=== PATIENT | male | born 1995 | race Two or more races ===

== ENCOUNTER 2025-01-30 17:49 | Emergency (ER) | payer SELFPAY ==
[~2025-01-30] VITALS: Ht 182.9 cm; Wt 107.0 kg
--- NOTE | 2025-01-30 18:12 | ED.PDOC ---
History of Present Illness HPI Comments 29 yr old male BIB EMS complains of anxiety, insomnia, palpitations, malaise and nausea for the last 24 hours after using cocaine yesterday. patient denies trauma, denies SI or HI, denies pain complaints Time Seen by MD: 17:55 Allergies: Coded Allergies: NO KNOWN ALLERGIES (Unverified , 01/30/25) Information Source: Patient, Emergency Med Personnel Mode of Arrival: EMS Severity: Moderate Timing: Days Duration: Since onset Past Medical History PAST MEDICAL HISTORY: Denies Social History Smoker: Cigarettes Alcohol: Occasionally Drugs: Cocaine Constitutional: reports: malaise; denies: chills, diaphoresis, fatigue, fever, sweats, weakness, others EENTM: denies: blurred vision, double vision, ear bleeding, ear discharge, ear drainage, ear pain, ear ringing, eye pain, eye redness, hearing loss, mouth pain, mouth swelling, nasal discharge, nose bleeding, nose congestion, nose pain, photophobia, tearing, throat pain, throat swelling, voice changes, others Respiratory: denies: cough, hemoptysis, orthopnea, SOB at rest, shortness of breath, SOB with excertion, stridor, wheezing, others Cardiovascular: reports: palpitations; denies: chest pain, dizzy spells, diaphoresis, Dyspnea on exertion, edema, irregular heart beat, left arm pain, lightheadedness, PND, syncope, others Gastrointestinal: denies: abdomen distended, abdominal pain, blood streaked bowels, constipated, diarrhea, dysphagia, difficulty swallowing, hematemesis, melena, nausea, poor appetite, poor fluid intake, rectal bleeding, rectal pain, vomiting, others Genitourinary: denies: burning, dysuria, flank pain, frequency, hematuria, incontinence, penile discharge, penile sore, pain, testicle pain, testicle swelling, urgency, others Neurological: reports: dizziness, others (insomnia); denies: fainting, headache, left sided numbness, left sided weakness, numbness, paresthesia, pre- existing deficit, right sided numbness, right sided weakness, seizure, speech problems, tingling, tremors, weakness Musculoskeletal: denies: back pain, gout, joint pain, joint swelling, muscle pain, muscle stiffness, neck pain, others Integumetry: denies: bruises, change in color, change in hair/nails, dryness, laceration, lesions, lumps, rash, wounds, others Allergic/Immunocompromised: denies: Difficulty Healing, Frequent Infections, Hives, Itching, others Hematologic/Lymphatic: denies: anemia, blood clots, easy bleeding, easy bruisin g, swollen glands, others Endocrine: denies: excessive hunger, excessive sweating, excessive thirst, excessive urination, flushing, intolerance to cold, intolerance to heat, unexplained weight gain, unexplained weight loss, others Psychiatric: denies: anxiety, bipolar disorder, depression, hopeless, panic disorder, schizophrenia, sleepless, suicidal, others All Other Systems: Reviewed and Negative Physical Exam General Appearance: Moderate Distress, Normal HEENT: Normal ENT Inspection, Pharynx Normal, TMs Normal Neck: Full Range of Motion, Non-Tender, Normal, Normal Inspection Respiratory: Chest Non-Tender, Lungs Clear, No Accessory Muscle Use, No Respiratory Distress, Normal Breath Sounds Cardiovascular: Tachycardia Breast Exam: Deferred Gastrointestinal: No Organomegaly, Non Tender, No Pulsatile Mass, Normal Bowel Sounds, Soft Genitalia: Deferred Pelvic: Deferred Rectal: Deferred Extremities: No calf tenderness, Normal capillary refill, Normal inspection, Normal range of motion, Non-tender, No pedal edema Musculoskeletal : Apperance: Normal Neurologic: Other (anxious affect, limited concentration) Cerebellar Function: Normal Reflexes: Normal Skin: Dry, Normal Color, Warm Lymphatic: No Adenopathy Was a procedure done? Was a procedure done?: No Differential Dx Considerations may include: Differential diagnosis includes but is not limited to: encephalitis, encephalopathy, toxic overdose, traumatic injury, infectious process, hypovolemia and others X-Ray, Labs, Meds, VS Vital Signs Date Time Temp Pulse Resp B/P (MAP) Pulse Ox O2 Delivery O2 Flow Rate FiO2 01/30/25 21:45 98 17 115/62 (79) 97 01/30/25 19:45 89 18 99 Room Air* 0 21 01/30/25 19:45 98.4 100 16 133/72 (92) 98 98.4 01/30/25 18:45 98.0 100 20 127/82 (97) 98 98.0 01/30/25 18:31 98.0 100 20 127/82 (97) 98 98.0 01/30/25 17:56 104 Lab Test 01/30/25 19:15 01/30/25 18:21 Range/Units Troponin I High Sensitivity 7 6 </=54 ng/L White Blood Count 11.7 H 4.4-10.8 10^3/uL Red Blood Count 5.10 4.5-5.90 10^6/uL Hemoglobin 14.9 13.5-17.5 g/dL Hematocrit 43.4 41.0-53.0 % Mean Corpuscular Volume 85.2 80.0-100.0 fL Mean Corpuscular Hemoglobin 29.2 28.0-32.0 pg Mean Corpuscular Hemoglobin Concent 34.2 32.0-36.0 g/dL Red Cell Distribution Width 14.1 11.8-14.3 % Platelet Count 300 140-450 10^3/uL Mean Platelet Volume 7.9 6.9-10.8 fL Neutrophils (%) (Auto) 72.0 37.0-80.0 % Lymphocytes (%) (Auto) 18.0 10.0-50.0 % Monocytes (%) (Auto) 9.1 0.0-12.0 % Eosinophils (%) (Auto) 0.3 0.0-7.0 % Basophils (%) (Auto) 0.6 0.0-2.0 % Neutrophils # (Auto) 8.4 1.6-8.6 10 ^3/uL Lymphocytes # (Auto) 2.1 0.4-5.4 10 ^3/uL Monocytes # (Auto) 1.1 0-1.3 10 ^3/uL Eosinophils # (Auto) 0 0-0.8 10 ^3/uL Basophils # (Auto) 0.1 0-0.2 10 ^3/uL Nucleated Red Blood Cells 0.2 % Sodium Level 140 136-145 mmol/L Potassium Level 3.1 L 3.5-5.1 mmol/L Chloride Level 104 98-107 mmol/L Carbon Dioxide Level 18 L 20-31 mmol/L Anion Gap 18 H 5-15 Blood Urea Nitrogen 9 9-23 mg/dL Creatinine 0.86 0.700-1.30 mg/dL Glomerular Filtration Rate Calc 120 >90 mL/min BUN/Creatinine Ratio 10.5 10.0-20.0 Serum Glucose 98 74-106 mg/dL Calcium Level 10.1 8.7-10.4 mg/dL Magnesium Level 1.7 1.6-2.6 mg/dL Total Bilirubin 1.8 H 0.2-1.0 mg/dL Aspartate Amino Transferase (AST) 68 H 13-40 U/L Alanine Aminotransferase (ALT) 38 7-40 U/L Alkaline Phosphatase 70 46-116 U/L Creatine Kinase 2166 H 46-171 U/L Total Protein 7.4 5.7-8.2 g/dL Albumin 4.6 3.2-4.8 g/dL Salicylates Level < 3.0 -30 mg/dL Acetaminophen Level < 2.0 L 10.0-20.0 UG/ML Plasma/Serum Blood Alcohol 30.8 H <10 mg/dL Current Medications Medications (Trade) Dose Ordered Sig/Patricia Route Start Time Stop Time Status Last Admin Sodium Chloride 1,000 ml @ 1,000 mls/hr Q1H ONCE IVB 01/30/25 18:15 01/30/25 19:14 DC 01/30/25 20:30 Lorazepam (Ativan Inj) 2 mg ONCE ONCE IV 01/30/25 18:15 01/30/25 18:16 DC 01/30/25 20:30 Potassium Chloride (Klor-Con Tablet) 40 meq ONCE ONCE PO 01/30/25 19:45 01/30/25 19:46 DC 01/30/25 20:30 Sodium Chloride 1,000 ml @ 1,000 mls/hr Q1H ONCE IV 01/30/25 19:45 01/30/25 20:44 DC 01/30/25 20:30 Time of 1ST Reevaluation: 18:11 Reevaluation 1ST: Unchanged Patient Education/Counseling: Diagnosis, Treatment Family Education/Counseling: No Family Present Departure 1 Departure Time of Disposition: 20:00 Impression: Primary Impression: Alcohol abuse Additional Impressions: Cocaine abuse Dehydration Hypokalemia Disposition: 01 HOME / SELF CARE / HOMELESS Condition: Stable Discharged With: Self Critical Care Note Critical Care Time?: No Stability Stability form required: No Heart Score Heart Score: Heart Score Response (Comments) Value History Slightly Suspicious 0 EKG Normal 0 Age <45 0 Risk Factors 1 or 2 risk factors 1 Troponin Normal limit 0 Total 1 I personally scribed for KATHY DENT MD ([email or web address]) on 01/30/25 at 18:45. Electronically submitted by Ervin Bet[facility]). I personally scribed for KATHY DENT MD ([email or web address]) on 01/30/25 at 18:45. Electronically submitted by Ervin Steele ([facility]). KATHY DENT MD Jan 30, 2025 18:12
[2025-01-30 18:34] LABS: Basophils # (auto) 0.1 10 ^3/uL (0-0.2); Basophils % (auto) 0.6 % (0.0-2.0); Eosinophils # (auto) 0 10 ^3/uL (0-0.8); Eosinophils % (auto) 0.3 % (0.0-7.0); Hematocrit 43.4 % (41.0-53.0); Hemoglobin 14.9 g/dL (13.5-17.5); Lymphocytes # (auto) 2.1 10 ^3/uL (0.4-5.4); Mean Corpuscular Hemoglobin 29.2 pg (28.0-32.0); Mean Corpuscular Hgb Conc. 34.2 g/dL (32.0-36.0); Mean Corpuscular Volume 85.2 fL (80.0-100.0); Monocytes # (auto) 1.1 10 ^3/uL (0-1.3); Monocytes % (auto) 9.1 % (0.0-12.0); Neutrophils # (auto) 8.4 10 ^3/uL (1.6-8.6); Nucleated Red Blood Cells % 0.2 %; Platelet Count (auto) 300 10^3/uL (140-450); Red Cell Distribution Width 14.1 % (11.8-14.3); White Blood Cell 11.7 10^3/uL (4.4-10.8)
[2025-01-30 19:01] LABS: Alanine Aminotransferase 38 U/L (7-40); Albumin 4.6 g/dL (3.2-4.8); Alkaline Phosphatase 70 U/L (46-116); Anion Gap 18 (5-15); BUN/Creatinine Ratio 10.5 (10.0-20.0); Blood Alcohol 30.8 mg/dL (<10); Blood Urea Nitrogen 9 mg/dL (9-23); Calcium 10.1 mg/dL (8.7-10.4); Chloride 104 mmol/L (98-107); Glucose 98 mg/dL (74-106); Magnesium 1.7 mg/dL (1.6-2.6); Sodium 140 mmol/L (136-145); Total Protein 7.4 g/dL (5.7-8.2)
[2025-01-30 19:11] LABS: Acetaminophen < 2.0 UG/ML (10.0-20.0); Salicylate < 3.0 mg/dL (-30)
--- NOTE | 2025-01-30 19:12 | ECG ---
[facility] Test Date: 2025-01-30 Test Time: 17:56:08 Pat Name: CARMEN MENG Department: ED Room: Gender: M Book Shelver: christina : 1995 Requested By: KATHY DENT Order Number: [id number] Reading MD: Josué Dean Measurements Intervals [place] Rate: 104 P: 51 AL: 128 QRS: 46 QRSD: 107 T: 40 QT: 364 QTc: 479 Interpretive Statements Sinus tachycardia Borderline prolonged QT interval Baseline wander in lead(s) I Electronically Signed On 02-03-2025 20:50:19 PDT by Josué Dean Please click the below link to view image of tracing.
[2025-01-30 19:16] LABS: Aspartate Aminotransferase 68 U/L (13-40); Bilirubin, Total 1.8 mg/dL (0.2-1.0); Carbon Dioxide 18 mmol/L (20-31); Creatine Kinase IFCC 2166 U/L (46-171); Potassium 3.1 mmol/L (3.5-5.1)
[2025-01-30 19:45] VITALS: PULSE 89; RESP 18; TEMP 98.4; O2SAT 99
[2025-01-30] MEDS: POTASSIUM CHL 20 Meq TABLET PO ONE (20:30)
[2025-01-30] MEDS: LORazepam 2MG/ML-1ML VIAL IV ONE (20:30)
[2025-01-30] MEDS: SODIUM CHLORIDE 0.9% 1,000 ML IV ONE (20:30)
[2025-01-30] MEDS: SODIUM CHLORIDE 0.9% 1,000 ML IVB ONE (20:30)
[2025-01-30 21:45] VITALS: BP 115/62; PULSE 98; RESP 17; O2SAT 97
== END 2025-01-30 21:45 | disposition home or self-care (01) ==
LOC: EDBD 17:49 → ER 17:58
DX: E86.0 Dehydration (principal); F10.10 Alcohol abuse, uncomplicated; F14.10 Cocaine abuse, uncomplicated; E87.6 Hypokalemia; F17.210 Nicotine dependence, cigarettes, uncomplicated; F41.9 Anxiety disorder, unspecified; Z79.899 Other long term (current) drug therapy
CPT/HCPCS: 36415; 80053; 80320; 80329; 82550; 83735; 84484; 85025; 93005; 96361; 96374; 99285; J2060; J7030